=== PATIENT | female | born 1995 | race Hispanic/Latino ===

== ENCOUNTER 2020-03-01 18:45 | Outpatient (CLI) | payer OTHER ==
[~2020-03-01] VITALS: Ht 172.7 cm; Wt 107.8 kg
[2020-03-01 19:00] VITALS: BP 135/81
[2020-03-01 19:04] VITALS: BP 139/83
[2020-03-01] MEDS ORDERED: PRENTAB9 PO (19:06)
[2020-03-01 20:06] VITALS: BP 128/76
[2020-03-01] MEDS ORDERED: FIORICET TAB PO ONE (20:30)
[2020-03-01] MEDS ORDERED: ANUSOL HC CREAM 30GM TOP PRN (20:30)
--- NOTE | 2020-03-01 21:07 | IPNPDOC ---
Obstetrical Progress Note Date of Service Mar 01, 2020 Subjective Pt complains of cramping, and swelling in LE's. c/o temporal GRAHAM throughout . No relief with Tylenol. Pt moved here from [place], and has no current OB provider. She has [employer] insurance. Objective Vital Signs Date Time Temp Pulse Resp B/P (MAP) Pulse Ox O2 Delivery O2 Flow Rate FiO2 03/01/20 20:26 18 Room Air 03/01/20 20:06 85 128/76 (93) 03/01/20 19:00 98.3 Assessment Heart Rate (FHR): 130 Variability: Moderate Accelerations: Positive Decelerations: None Heart Rate Tracing: Category I Tocometer Frequency: irregular Duration: less than 60 seconds Strength: palpated as mild Sterile Vaginal Examination Dilation: 2cm Effacement (%): 50% Station: -2 Cervical Consistency: Firm Cervical Position: Posterior Assessment and Plan Age: 24 : 1 Term: 0 EGA at Admission: 37 (1/7) Weeks & Days 05/29 Status: Reassuring Group B Streptococcus: Unknown Additional Comments 24 yo G1 at 37 1/7 weeks with cramping, GRAHAM Pt given Fioricet Tablet with good effect Hemorrhoid cream Pt will call to arrange care here BRADLEY ROE MD Mar 01, 2020 21:07
== END 2020-03-01 21:10 | disposition home or self-care (01) ==
LOC: M LDO 18:45
PROVIDERS: ATTEND Specialist
DX: O26.893 Other specified pregnancy related conditions, third trimester (principal); Z3A.37 37 weeks gestation of pregnancy
CPT/HCPCS: 59025; G0378; G0463

== ENCOUNTER → 2020-03-01 | Outpatient (CLI) | payer OTHER ==
[~2020-03-01] MED LIST: ACET-683 PO; IBUP80TA PO; PRENTAB9 PO
== END ==
LOC: M LDO 18:38
PROVIDERS: ATTEND Obstetrics & Gynecology
DX: Z79.899 Other long term (current) drug therapy (principal)

== ENCOUNTER → 2020-03-19 | Outpatient (REF) | payer OTHER | LOC: M SFHCWAGY 10:04 | PROVIDERS: ATTEND Obstetrics & Gynecology | DX: Z34.03 Encounter for supervision of normal first pregnancy, third trimester (principal); Z36.89 Encounter for other specified antenatal screening ==

== ENCOUNTER 2020-03-22 14:36 | Inpatient (IN) | payer OTHER ==
[2020-03-22] VITALS (13 sets, daily range): BP systolic 127–159; BP diastolic 72–94
[~2020-03-22] VITALS: Ht 172.7 cm; Wt 109.0 kg
[~2020-03-22 14:36] MED LIST changes: -ACET-683 PO; -IBUP80TA PO
[2020-03-22] MEDS ORDERED: LACTATED RINGER'S 1000 ML IV STA (15:49)
[2020-03-22 15:59] LABS: HEMATOCRIT 31.4 % (36.0-47.0); HEMOGLOBIN 10.1 g/dl (12.0-15.5); MEAN CORPUSCULAR HEMOGLOBIN 27.4 pg (27.0-33.0); MEAN CORPUSCULAR HGB CONC 32.2 g/dl (32.0-36.5); MEAN CORPUSCULAR VOLUME 85.3 fl (80.0-96.0); PLATELET COUNT, AUTOMATED 233 10^3/uL (150-450); RED BLOOD COUNT 3.68 10^6/uL (4.00-5.40); WHITE BLOOD COUNT 11.9 10^3/uL (4.0-10.0)
[2020-03-22] MEDS: miSOPROStol 50 MCG 1/2 TAB (S0191) SL SCH ×2 (16:08→20:22)
--- NOTE | 2020-03-22 16:12 | HPEPDOC ---
Obstetrical History & Physical General Date of Admission Mar 22, 2020 at 14:36 History of Present Illness 24 yo G1 at 40 0/7 weeks gestation by LMP (EDC=03/22/2020) presetns for elective induction of labor. She moved here late in , and has only had one visit. Information Provided By: Patient Age: 24 : 1 Term: 0 Care Care: Other Number of Visits: 1 Dating Final EDC: Mar 22, 2020 Final EDC by: LMP Past Medical History Past Obstetrical History : Past Obstetrical History: Primgravida Past Medical History Surgical History: Denies/None Family History Significant Family History: No pertinent family hx Social History Family situation: Spouse/partner home * Smoker: non-smoker Alcohol: Denies Allergies Coded Allergies: No Known Allergies (Unverified , 03/01/20) Medications Scheduled No.137/Iron/Folic Acd ( Vitamin Tablet) 1 Each Tablet, 1 TAB PO DAILY Physical Examination Physical Examination GENERAL: Alert and oriented times three. BREAST: . ABDOMEN: Gravid and non-tender to touch. FETUS: Is vertex (VTX) by sterile vaginal examination (SVE), fetus is vertex (VTX) by Harjit. HEART RATE: Regular rate and rhythm. LUNGS: Clear to auscultation (CTA). EXTREMITIES: No edema. No clonus. Deep tendon reflexes (DTRs) + . Laboratory Data 24H LABS Laboratory Tests 2 03/22/20 15:17: Nucleated Red Blood Cells % (auto) 0.0 CBC/BMP Laboratory Tests 03/22/20 15:17 Assessment/Plan Assessment Pt is a 24-year-old (G)1 para (P)0 at 40+0 weeks by LMP (EDC=03/22/2020) presents to Labor and Delivery for induction of labor. Plan Admit and orient. Group B Streptococcus (GBS) negative. Labs and intravenous (IV) per unit protocol. Anticipate [normal spontaneous delivery ()]. C-S as appropriate. BRADLEY QUARLES MD Mar 22, 2020 16:12
[2020-03-22] MEDS ORDERED: FENTANYL 2MCG/ML ROPIVACAINE 0.2% IN 0.9% NACL 100ML IVBAG As Ordered ONE (22:17)
[2020-03-22] MEDS ORDERED: LACTATED RINGER'S 1000 ML IV PRN (23:39)
[2020-03-22] MEDS ORDERED: ONDANSETRON 4MG/2ML VIAL IV PRN (23:39)
[2020-03-22] MEDS ORDERED: NALOXONE INJ 0.4MG/1ML VIAL (J2310 PER 1MG) IV PRN (23:39)
[2020-03-22] MEDS ORDERED: EPIDURAL COMMENT XX SCH (23:39)
[2020-03-22] MEDS ORDERED: REFRIGERATOR IV KEYS XX PRN (23:39)
[2020-03-22] MEDS ORDERED: EPIDURAL/PCA KEYS XX PRN (23:39)
[2020-03-22] MEDS ORDERED: diphenhydrAMINE 50MG/ML VIAL (J1200) IV PRN (23:39)
[2020-03-22] MEDS ORDERED: ePHEDrine SULFATE 25 MG/5 ML(5MG/ML) SYRINGE IV PRN (23:39)
[2020-03-22] MEDS ORDERED: FENTANYL/ROPIVACAINE/NACL BAG 100 ML EPIDURAL SCH (23:39)
[2020-03-23] VITALS (14 sets, daily range): BP systolic 121–193; BP diastolic 63–93
[2020-03-23] MEDS ORDERED: OXYTOCIN 30 UNITS IN 0.9% NaCl 500ML IV BAG (J2590) As Ordered ONE (01:56)
[2020-03-23] MEDS ORDERED: LIDOCAINE 1% MDV 20ML VIAL INFIL ONE (05:00)
[2020-03-23] MEDS ORDERED: METHYLERGONOVINE MALEATE 0.2 MG TAB PO PRN (05:00)
[2020-03-23] MEDS ORDERED: MEASLES,MUMPS,RUBELLA VACCINE INJ (MMR-II) (90707) SC SCH (05:00)
[2020-03-23] MEDS ORDERED: DIBUCAINE 1% OINTMENT 30GM TOP PRN (05:00)
[2020-03-23] MEDS ORDERED: IBUPROFEN 600MG TAB PO PRN (05:00)
[2020-03-23] MEDS ORDERED: DOCUSATE SODIUM 100 MG CAP PO PRN (05:00)
[2020-03-23] MEDS ORDERED: RHOGAM 300 MCG (1500 IU) INJ (J2790) IM SCH (05:00)
[2020-03-23] MEDS ORDERED: ACETAMINOPHEN TAB 650MG DOSE (2X325MG) PO PRN (05:00)
[2020-03-23] MEDS ORDERED: ONDANSETRON 4MG/2ML VIAL IV PRN (05:00)
[2020-03-23] MEDS ORDERED: OXYTOCIN DRIP 30 UNITS in IV 1 EA IV ONE (05:00)
--- NOTE | 2020-03-23 05:06 | DNPDOC ---
[facility] Delivery Note Delivery Note DATE OF DELIVERY: March 23, 2020 PREDELIVERY DIAGNOSIS: 40-0/7 weeks' gestation and labor. POST DELIVERY DIAGNOSIS: Delivered. PROCEDURE: Spontaneous vaginal delivery. [employer]SEM[employer]: Dr. Bradley Quarles MD ANESTHESIA: epidural. ESTIMATED BLOOD LOSS: 300 mL. FINDINGS: 7 pound 10 ounce male infant, Score 8/9, true knot x 1. DELIVERY SUMMARY: Patient is a 24-year-old 1 now para 1 who was admitted to labor and delivery for induction. She received two doses of Misoprostol. She had a 1 hour second stage of labor that resulted in a 7 lb. 10 oz male infant. The shoulders delivered with ease. The infant was handed to the mother and cried quickly. The cord was doubly clamped and cut. The placenta delivered spontaneously and appeared intact. A second degree perineal laceration was repaired with 2-O Chromic in the usual fashion under local anesthesia. The patient received IV Pitocin immediately after delivery of the placenta. Sponge and needle counts were correct. BRADLEY QUARLES MD Mar 23, 2020 05:06
[2020-03-23] MEDS: ACETAMINOPHEN 500 MG TAB PO PRN ×3 (08:00→23:04)
[2020-03-23] MEDS: PRENATAL VITAMINS CHEWABLE TABLET PO SCH (08:48)
[2020-03-23] MEDS: IBUPROFEN 800 MG TAB PO PRN ×2 (08:49→18:37)
[2020-03-24 05:31] VITALS: BP 135/83
[2020-03-24] MEDS ORDERED: ACET-683 PO (07:56)
[2020-03-24] MEDS ORDERED: IBUP80TA PO (07:56)
[2020-03-24] MEDS: IBUPROFEN 800 MG TAB PO PRN (08:03)
[2020-03-24] MEDS: PRENATAL VITAMINS CHEWABLE TABLET PO SCH (08:03)
[2020-03-24] MEDS ORDERED: INFLUENZA QUADRIVALENT PF VACCINE 0.5ML SYRINGE IM ONE (09:00)
[2020-03-24] MEDS ORDERED: BOOSTRIX/ADACEL VACCINE (DIPHTH/PERTUSS/ACELL/TETANUS) 0.5ML SYR IM ONE (09:00)
[2020-03-24] MEDS: ACETAMINOPHEN 500 MG TAB PO PRN (14:56)
== END 2020-03-24 17:00 | disposition home or self-care (01) | DRG 807 ==
LOC: M LDI 14:36 → M OBS 03-23 08:35
PROVIDERS: ADMIT Specialist; ATTEND Specialist
PROC: 3E0P7GC Introduction of Other Therapeutic Substance into Female Reproductive, Via Natural or Artificial Opening (ICD-10-PCS; 2020-03-22)
PROC: 10E0XZZ Delivery of Products of Conception, External Approach (ICD-10-PCS; principal; 2020-03-23)
PROC: 0KQM0ZZ Repair Perineum Muscle, Open Approach (ICD-10-PCS; 2020-03-23)
DX: O70.1 Second degree perineal laceration during delivery (principal); Z37.0 Single live birth; Z3A.40 40 weeks gestation of pregnancy

== ENCOUNTER 2020-08-20 11:19 | Emergency (ER) | payer OTHER ==
[~2020-08-20] VITALS: Ht 172.7 cm; Wt 101.2 kg
[~2020-08-20 11:19] MED LIST changes: +ACET-683 PO; +IBUP80TA PO
[2020-08-20] MEDS ORDERED: APPL300T4 PO (11:30)
[2020-08-20] MEDS ORDERED: MULT-90 PO (11:30)
[2020-08-20 12:13] LABS: EOS # 0.1 10^3/uL (0.0-0.5); EOS % 1.7 % (0.0-3.0); HEMATOCRIT 40.1 % (36.0-47.0); HEMOGLOBIN 12.6 g/dl (12.0-15.5); LYMPH % 21.5 % (24.0-44.0); MEAN CORPUSCULAR HEMOGLOBIN 27.4 pg (27.0-33.0); MEAN CORPUSCULAR HGB CONC 31.4 g/dl (32.0-36.5); MEAN CORPUSCULAR VOLUME 87.2 fl (80.0-96.0); MONO # 0.4 10^3/uL (0.0-0.8); MONO % 9.5 % (2.0-8.0); NEUTROPHILS # 3.1 10^3/uL (1.5-8.5); NEUTROPHILS % 67.1 % (36.0-66.0); PLATELET COUNT, AUTOMATED 238 10^3/uL (150-450); WHITE BLOOD COUNT 4.6 10^3/uL (4.0-10.0)
[2020-08-20 13:07] LABS: ALBUMIN 3.2 GM/DL (3.2-5.2); BILIRUBIN,DIRECT 0.1 MG/DL (0.0-0.2); BILIRUBIN,TOTAL 0.4 MG/DL (0.2-1.0); TOTAL PROTEIN 7.3 GM/DL (6.4-8.2)
--- NOTE | 2020-08-20 13:34 | REP ---
INDICATION: abd pain COMPARISON: None. TECHNIQUE: CT Scan of the abdomen and pelvis was performed without intravenous contrast. Sagittal and coronal reconstruction images performed. FINDINGS: Lung bases: Unremarkable. Liver: Grossly unremarkable. Gallbladder: Unremarkable. Spleen: Grossly unremarkable.. Adrenals: Normal. Pancreas: Grossly unremarkable.. Kidneys: No hydronephrosis or nephrolithiasis. Ureters demonstrate no dilatation or calculus. Small and large bowel: Grossly unremarkable. Free fluid: None. Abdominal aorta: No aneurysm. Adenopathy: None. Appendix: Not inflamed. Osseous structures: Unremarkable. Pelvis: No mass. No bladder calculus seen. IMPRESSION: Negative non-contrast CT abdomen and pelvis. <Electronically signed by Lane Barba > 08/20/20 [id number]
[2020-08-20] MEDS ORDERED: PROT1TAB2 PO (14:36)
[2020-08-20] MEDS ORDERED: MACR100C43 PO (14:36)
[2020-08-20 14:44] VITALS: BP 116/69
== END 2020-08-20 14:47 | disposition home or self-care (01) ==
LOC: M ED 11:19
DX: N39.0 Urinary tract infection, site not specified (principal); K29.70 Gastritis, unspecified, without bleeding; Z79.899 Other long term (current) drug therapy

== ENCOUNTER → 2020-12-03 | Outpatient (REF) | payer OTHER ==
[~2020-12-03] MED LIST changes: +APPL300T4 PO; +MACR100C43 PO; +MULT-90 PO; +PROT1TAB2 PO
== END ==
LOC: M SFHCWAGY 13:15
PROVIDERS: ATTEND Obstetrics & Gynecology
DX: Z12.4 Encounter for screening for malignant neoplasm of cervix (principal); Z01.419 Encounter for gynecological examination (general) (routine) without abnormal findings

== ENCOUNTER 2021-10-04 00:45 | Outpatient (CLI) | payer OTHER ==
[~2021-10-04] VITALS: Ht 172.7 cm; Wt 112.0 kg
[2021-10-04 01:22] VITALS: BP 152/87
[2021-10-04] MEDS ORDERED: PRENTAB9 PO (01:26)
[2021-10-04] MEDS ORDERED: IRON27TA2 PO (01:26)
[2021-10-04] MEDS ORDERED: TUMS500C PO (01:26)
[2021-10-04 01:28] VITALS: BP 136/74
[2021-10-04] MEDS ORDERED: HOME MED LIST COMPLETE! XX SCH (01:30)
[2021-10-04 02:19] VITALS: BP 135/88
== END 2021-10-04 05:21 | disposition home or self-care (01) ==
LOC: M LDO 00:45
PROVIDERS: ATTEND Obstetrics & Gynecology
DX: O47.03 False labor before 37 completed weeks of gestation, third trimester (principal); Z3A.38 38 weeks gestation of pregnancy
CPT/HCPCS: 59025; 76815; G0463

== ENCOUNTER 2021-10-12 21:47 | Inpatient (IN) | payer OTHER ==
[~2021-10-12] VITALS: Ht 172.7 cm; Wt 118.0 kg
[~2021-10-12 21:47] MED LIST changes: +IRON27TA2 PO; +TUMS500C PO
[2021-10-12 22:04] VITALS: BP 143/93
[2021-10-12 23:17] VITALS: BP 143/80
[2021-10-13] VITALS (15 sets, daily range): BP systolic 116–151; BP diastolic 59–93
[2021-10-13] MEDS ORDERED: TRANEXAMIC ACID INJection 1,000 MG in NS 100 ML IV PRN (00:20)
[2021-10-13] MEDS ORDERED: OXYTOCIN DRIP 30 UNITS in IV 1 EA IV PRN (00:20)
[2021-10-13] MEDS ORDERED: LIDOCAINE 1% MDV 20ML VIAL INFIL PRN (00:20)
[2021-10-13] MEDS ORDERED: PROMETHAZINE 25MG/ML 1ML VIAL IV ONE (00:45)
[2021-10-13] MEDS ORDERED: BUTORPHANOL 2 MG/ML INJ (J0595) IV ONE (00:45)
[2021-10-13 00:47] LABS: HEMATOCRIT 33.5 % (36.0-47.0); HEMOGLOBIN 11.2 g/dl (12.0-15.5); MEAN CORPUSCULAR HEMOGLOBIN 28.5 pg (27.0-33.0); MEAN CORPUSCULAR HGB CONC 33.4 g/dl (32.0-36.5); MEAN CORPUSCULAR VOLUME 85.2 fl (80.0-96.0); PLATELET COUNT, AUTOMATED 193 10^3/uL (150-450); RED BLOOD COUNT 3.93 10^6/uL (4.00-5.40); WHITE BLOOD COUNT 10.7 10^3/uL (4.0-10.0)
[2021-10-13] MEDS: LR 1,000 ML IV SCH ×3 (00:57→16:24)
[2021-10-13] MEDS ORDERED: OXYTOCIN DRIP 30 UNITS in IV 1 EA IV SCH ×27 (08:15→16:00)
[2021-10-13] MEDS ORDERED: ONDANSETRON 4MG/2ML VIAL IV PRN (13:20)
[2021-10-13] MEDS ORDERED: FENTANYL/ROPIVACAINE/NACL BAG 100 ML EPIDURAL SCH (13:20)
[2021-10-13] MEDS ORDERED: diphenhydrAMINE 50MG/ML VIAL (J1200) IV PRN (13:20)
[2021-10-13] MEDS ORDERED: LR 500 ML IV PRN (13:20)
[2021-10-13] MEDS ORDERED: NALOXONE INJ 0.4MG/1ML VIAL (J2310 PER 1MG) IV PRN (13:20)
[2021-10-13] MEDS ORDERED: ePHEDrine INJ 50 MG/ML VIAL IVP PRN (13:20)
[2021-10-13] MEDS ORDERED: EPIDURAL/PCA KEYS XX PRN (13:20)
[2021-10-13] MEDS ORDERED: ACETAMINOPHEN 500 MG TAB PO PRN ×12 (16:00)
[2021-10-13] MEDS ORDERED: ACETAMINOPHEN TAB 650MG DOSE (2X325MG) PO PRN ×13 (16:00)
[2021-10-13] MEDS ORDERED: IBUPROFEN 800 MG TAB PO PRN ×12 (16:00)
[2021-10-13] MEDS ORDERED: METHYLERGONOVINE MALEATE 0.2 MG TAB PO PRN ×13 (16:00)
[2021-10-13] MEDS ORDERED: MOM 30ML SUSPENSION UDC PO PRN ×13 (16:00)
[2021-10-13] MEDS ORDERED: MEASLES,MUMPS,RUBELLA VACCINE INJ (MMR-II) (90707) SC SCH ×13 (16:00)
[2021-10-13] MEDS ORDERED: IBUPROFEN 600MG TAB PO PRN ×13 (16:00)
[2021-10-13] MEDS ORDERED: DIBUCAINE 1% OINTMENT 30GM TOP PRN ×13 (16:00)
[2021-10-13] MEDS: IBUPROFEN 800 MG TAB PO PRN (19:05)
[2021-10-13] MEDS: DOCUSATE SODIUM 100MG CAPSULE PO SCH (19:05)
[2021-10-13] MEDS ORDERED: DOCUSATE SODIUM 100MG CAPSULE PO SCH ×12 (21:00)
[2021-10-13] MEDS: ACETAMINOPHEN 500 MG TAB PO PRN (23:48)
[2021-10-14] MEDS: IBUPROFEN 800 MG TAB PO PRN ×2 (04:57→16:02)
[2021-10-14 06:00] VITALS: BP 139/89
[2021-10-14] MEDS: PRENATAL VITAMINS CHEWABLE TABLET PO SCH (07:40)
[2021-10-14] MEDS: DOCUSATE SODIUM 100MG CAPSULE PO SCH ×2 (07:40→21:30)
[2021-10-14] MEDS: ACETAMINOPHEN 500 MG TAB PO PRN ×2 (07:46→17:49)
[2021-10-14] MEDS ORDERED: PRENATAL VITAMINS CHEWABLE TABLET PO SCH ×12 (09:00)
[2021-10-14 17:51] VITALS: BP 137/86
[2021-10-14 22:20] VITALS: BP 148/96
[2021-10-15] MEDS: IBUPROFEN 800 MG TAB PO PRN (01:01)
[2021-10-15 01:57] VITALS: BP 130/86
[2021-10-15 06:12] VITALS: BP 134/78
[2021-10-15] MEDS ORDERED: COLA100C5 PO (07:00)
[2021-10-15] MEDS ORDERED: PRENCHW PO (07:00)
[2021-10-15] MEDS ORDERED: IBUP-1022 PO (07:00)
[2021-10-15] MEDS: PRENATAL VITAMINS CHEWABLE TABLET PO SCH (07:54)
[2021-10-15] MEDS: DOCUSATE SODIUM 100MG CAPSULE PO SCH (07:54)
== END 2021-10-15 11:00 | disposition home or self-care (01) | DRG 807 ==
LOC: M LDO 21:47 → M LDI 10-13 00:20 → M OBS 10-13 17:28
PROVIDERS: ADMIT Obstetrics & Gynecology; ATTEND Advanced Practice Midwife
PROC: 10E0XZZ Delivery of Products of Conception, External Approach (ICD-10-PCS; principal; 2021-10-13)
PROC: 0HQ9XZZ Repair Perineum Skin, External Approach (ICD-10-PCS; 2021-10-13)
DX: O99.02 Anemia complicating childbirth (principal); Z37.0 Single live birth; O62.4 Hypertonic, incoordinate, and prolonged uterine contractions; Z3A.39 39 weeks gestation of pregnancy; O76 Abnormality in fetal heart rate and rhythm complicating labor and delivery; O99.214 Obesity complicating childbirth; O69.81X0 Labor and delivery complicated by cord around neck, without compression, not applicable or unspecified; O70.1 Second degree perineal laceration during delivery; D64.9 Anemia, unspecified; E66.9 Obesity, unspecified

== ENCOUNTER 2023-10-05 08:31 | Inpatient (IN) | payer OTHER ==
[~2023-10-05] VITALS: Ht 172.7 cm; Wt 88.2 kg
[~2023-10-05 08:31] MED LIST changes: +CEFD1CAP9 PO; +COLA100C5 PO; +IBUP-1022 PO; +ONDA-284 PO; +PRENCHW PO
[2023-10-05] MEDS ORDERED: MED REC IN PROGRESS XX SCH (10:30)
[2023-10-05] MEDS ORDERED: HOME MED LIST COMPLETE! XX SCH (11:15)
[2023-10-05 11:43] LABS: HEMATOCRIT 42.7 % (36.0-47.0); HEMOGLOBIN 13.7 g/dl (12.0-15.5); MEAN CORPUSCULAR HEMOGLOBIN 28.8 pg (27.0-33.0); MEAN CORPUSCULAR HGB CONC 32.1 g/dl (32.0-36.5); MEAN CORPUSCULAR VOLUME 89.9 fl (80.0-96.0); PLATELET COUNT, AUTOMATED 245 10^3/uL (150-450); RED BLOOD COUNT 4.75 10^6/uL (4.00-5.40); WHITE BLOOD COUNT 8.4 10^3/uL (4.0-10.0)
[2023-10-05 12:02] LABS: AMPHETAMINES LEVEL URINE NEGATIVE (NEGATIVE); BARBITURATES URINE NEGATIVE (NEGATIVE); BENZODIAZEPINES URINE NEGATIVE (NEGATIVE); CANNABINOIDS URINE NEGATIVE (NEGATIVE); COCAINE METABOLITE URINE NEGATIVE (NEGATIVE); METHADONE URINE NEGATIVE (NEGATIVE); OPIATES URINE NEGATIVE (NEGATIVE); PHENCYCLIDINE URINE NEGATIVE (NEGATIVE)
[2023-10-05 12:06] LABS: ETHYL ALCOHOL (ETHANOL) < 0.003 % (0.000-0.010)
[2023-10-05 12:08] LABS: ALBUMIN 4.2 G/DL (3.2-5.2); ALKALINE PHOSPHATASE 116 U/L (46-116); ALT/SGPT 14 U/L (7.0-40); AST/SGOT 16 U/L (<34); BILIRUBIN,DIRECT 0.3 MG/DL (<0.4); BILIRUBIN,TOTAL 0.8 MG/DL (0.3-1.2); BLOOD UREA NITROGEN 13 MG/DL (9-23); CALCIUM LEVEL 9.6 MG/DL (8.5-10.1); CARBON DIOXIDE LEVEL 25 MMOL/L (20-31); CHLORIDE LEVEL 103 MMOL/L (98-107); CREATININE FOR GFR 0.87 MG/DL (0.55-1.30); GLOMERULAR FILTRATION RATE > 60.0 (>60); GLUCOSE, FASTING 98 MG/DL (60-100); HCG, SERUM QUALITATIVE NEGATIVE (NEGATIVE); POTASSIUM SERUM 3.9 MMOL/L (3.5-5.1); SALICYLATE LEVEL < 3.0 MG/DL (<30); SODIUM LEVEL 138 MMOL/L (136-145); THYROID STIMULATING HORMONE 0.908 uIU/ML (0.55-4.78); TOTAL PROTEIN 8.1 G/DL (5.7-8.2)
[2023-10-05] MEDS ORDERED: MAALOX 30 ML SUSP *UDC PO PRN (16:20)
[2023-10-05 18:13] VITALS: BP 132/88; TEMP 98.2; O2SAT 100
[2023-10-06] MEDS: IBUPROFEN 400MG TAB PO PRN (03:47)
[2023-10-06] MEDS: NORCO, ANEXSIA 5/325MG TABLET (HYDROcodone/ACETAMINOPHEN) PO ONE (05:51)
[2023-10-06 06:10] VITALS: BP 111/63; TEMP 98.2; O2SAT 100
[2023-10-06] MEDS: VENLAFAXINE **XR** 37.5 MG CAPSULE PO SCH (09:00)
[2023-10-06 12:14] LABS: C REACTIVE PROTEIN QUANTITATIV < 0.40 MG/DL (<1.0)
[2023-10-06 13:01] LABS: HEPATITIS B SURFACE ANTIBODY NEGATIVE (POSITIVE)
[2023-10-06 13:06] LABS: PROCALCITONIN <0.04 ng/ml
[2023-10-06 13:12] LABS: HEPATITIS B SURFACE ANTIGEN NEGATIVE (NEGATIVE)
[2023-10-06 13:24] LABS: HIV 1&2 SCREEN NEGATIVE (NEGATIVE)
[2023-10-06 13:33] LABS: HEPATITIS B CORE ANTIBODY IGM NEGATIVE (NEGATIVE); HEPATITIS C VIRUS ABY INDEX < 0.02 INDEX (<0.8)
[2023-10-06 14:39] LABS: Trichomonas vaginalis (AMP) NOT DETECTED (NEGATIVE)
[2023-10-06 15:03] LABS: GC DNA AMPLIFICATION NEGATIVE (NEGATIVE)
[2023-10-06] MEDS: ACETAMINOPHEN TAB 650MG DOSE (2X325MG) PO PRN (16:43)
[2023-10-06] MEDS: OLANZapine 5 MG TAB PO SCH (20:19)
[2023-10-06] MEDS: traZODone 50 MG TAB PO PRN (20:20)
[2023-10-07] MEDS ORDERED: DIVALPROEX 250MG *ER* TAB PO SCH (09:00)
[2023-10-07] MEDS: OLANZapine 10 MG TAB PO ONE (12:46)
[2023-10-07] MEDS: HALOPERIDOL LACTATE 5MG/ML VIAL IM STA (17:45)
[2023-10-07] MEDS: LORazepam 2 MG/ML 1ML VIAL IM STA (17:45)
[2023-10-08 06:22] VITALS: BP 132/90; TEMP 97.5; O2SAT 96
[2023-10-08] MEDS: DIVALPROEX 250MG *ER* TAB PO SCH (09:00)
[2023-10-08 16:24] VITALS: BP 140/79; TEMP 97.8; O2SAT 96
[2023-10-08] MEDS: OLANZapine ORAL DISINTEGRATING TAB 5MG PO PRN (19:33)
[2023-10-08] MEDS: diphenhydrAMINE 25MG CAP PO PRN (19:34)
[2023-10-08] MEDS: LORazepam 2 MG TAB PO PRN (19:34)
[2023-10-09 07:00] VITALS: BP 132/86; TEMP 97.2; O2SAT 96
[2023-10-09 15:51] VITALS: BP 132/74; TEMP 98.2; O2SAT 100
[2023-10-10 06:42] VITALS: BP 138/65; TEMP 97.6; O2SAT 100
[2023-10-10] MEDS: OLANZapine 10 MG TAB PO SCH (09:50)
[2023-10-10] MEDS ORDERED: QUEtiapine FUMARATE 50MG TAB PO PRN (10:15)
[2023-10-10] MEDS: LITHIUM CARBONATE 300 MG CAP PO SCH (21:00)
[2023-10-10 21:08] LABS: HBV HBV DNA not detected IU/mL (.); HEPATITIS C QUANTITATION HCV Not Detected IU/mL (.)
[2023-10-11] MEDS ORDERED: DIVALPROEX 250MG *ER* TAB PO SCH (09:00)
[2023-10-11] MEDS: DIVALPROEX 500MG *ER* TAB PO SCH (09:51)
[2023-10-11 18:31] VITALS: BP 120/59; TEMP 98.7
[2023-10-11] MEDS: OLANZapine 10 MG TAB PO SCH (21:00)
[2023-10-11] MEDS: QUEtiapine FUMARATE 50MG TAB PO SCH (21:00)
[2023-10-12 07:06] LABS: CHOLESTEROL RISK RATIO 2.03 (<5); HDL CHOLESTEROL 59.1 MG/DL (>40); LDL CHOLESTEROL 50.1 MG/DL (<100); NON-HDL-C 60.9 MG/DL
[2023-10-12] MEDS: PILL CUTTER 1 EACH XX PRN (20:52)
[2023-10-12] MEDS: QUEtiapine FUMARATE 50MG TAB PO SCH (20:57)
[2023-10-13 05:59] VITALS: BP 116/66; TEMP 97.8; O2SAT 100
[2023-10-13 18:51] VITALS: BP 134/74; TEMP 98.4; O2SAT 99
[2023-10-13] MEDS: DIVALPROEX 250MG *ER* TAB PO SCH (21:47)
[2023-10-14 16:34] VITALS: BP 121/65; TEMP 97.5; O2SAT 98
[2023-10-15 15:53] VITALS: BP 120/83; TEMP 97.2; TEMP 98.3; O2SAT 94; O2SAT 96
[2023-10-15 16:11] VITALS: BP 120/83; TEMP 97.2; O2SAT 94
[2023-10-15] MEDS: traZODone 50 MG TAB PO PRN (21:40)
[2023-10-16] MEDS: OLANZapine ORAL DISINTEGRATING TAB 5MG PO PRN (05:57)
[2023-10-16 14:00] VITALS: BP 140/82; TEMP 97.6; O2SAT 97
[2023-10-16 15:19] LABS: HEMOGLOBIN 12.8 g/dl (12.0-15.5); MEAN CORPUSCULAR HEMOGLOBIN 29.2 pg (27.0-33.0); MEAN CORPUSCULAR HGB CONC 32.8 g/dl (32.0-36.5); MEAN CORPUSCULAR VOLUME 88.8 fl (80.0-96.0); PLATELET COUNT, AUTOMATED 208 10^3/uL (150-450); RED BLOOD COUNT 4.39 10^6/uL (4.00-5.40); WHITE BLOOD COUNT 6.6 10^3/uL (4.0-10.0)
[2023-10-16 15:51] LABS: ALBUMIN 3.3 G/DL (3.2-5.2); ALKALINE PHOSPHATASE 93 U/L (46-116); ALT/SGPT 12 U/L (7.0-40); AST/SGOT < 8 U/L (<34); BILIRUBIN,TOTAL 0.4 MG/DL (0.3-1.2); BLOOD UREA NITROGEN 13 MG/DL (9-23); CALCIUM LEVEL 8.9 MG/DL (8.5-10.1); CARBON DIOXIDE LEVEL 24 MMOL/L (20-31); CHLORIDE LEVEL 112 MMOL/L (98-107); CREATININE FOR GFR 0.69 MG/DL (0.55-1.30); GLOMERULAR FILTRATION RATE > 60.0 (>60); GLUCOSE, FASTING 124 MG/DL (60-100); SODIUM LEVEL 143 MMOL/L (136-145); TOTAL PROTEIN 6.8 G/DL (5.7-8.2)
[2023-10-17 06:57] VITALS: BP 120/69; TEMP 98.4; O2SAT 100
[2023-10-17] MEDS: HALOPERIDOL DECANOATE 100 MG/ML 1ML VIAL IM ONE (09:00)
[2023-10-17] MEDS ORDERED: BENZTROPINE 1 MG TAB PO PRN (09:05)
[2023-10-17 17:53] VITALS: BP 117/68; TEMP 97.4
[2023-10-17] MEDS: QUEtiapine FUMARATE 100 MG TAB PO SCH (21:23)
[2023-10-17] MEDS: DIVALPROEX 500MG *ER* TAB PO SCH (21:23)
[2023-10-17] MEDS: traZODone 100 MG TAB PO PRN (21:23)
[2023-10-17 22:27] VITALS: BP 126/65; TEMP 98.3; O2SAT 100
[2023-10-18] MEDS: HALOPERIDOL DECANOATE 100 MG/ML 1ML VIAL IM ONE (09:00)
[2023-10-18] MEDS: BENZTROPINE 2 MG TAB PO PRN (15:34)
[2023-10-18 16:24] VITALS: BP 112/67; TEMP 98.7; O2SAT 100
[2023-10-19 06:24] VITALS: BP 119/57; TEMP 98.4; O2SAT 100
[2023-10-19] MEDS: BENZTROPINE 1 MG TAB PO SCH (09:00)
[2023-10-19] MEDS ORDERED: HALOPERIDOL DECANOATE 100 MG/ML 1ML VIAL IM ONE (11:20)
[2023-10-19] MEDS: HALOPERIDOL DECANOATE 100 MG/ML 1ML VIAL IM ONE (14:49)
[2023-10-19] MEDS: LORazepam 2 MG TAB PO PRN (14:49)
[2023-10-20 17:13] VITALS: BP 127/69; TEMP 97; O2SAT 100
[2023-10-21 06:36] VITALS: BP 123/68; TEMP 98; O2SAT 100
[2023-10-21] MEDS: DIVALPROEX 500MG *ER* TAB PO SCH (09:00)
[2023-10-21 16:00] VITALS: BP 120/76; TEMP 98; O2SAT 99
[2023-10-22 06:02] VITALS: BP 111/59; TEMP 98.8; O2SAT 100
[2023-10-22 16:15] VITALS: BP 108/59; TEMP 97.5; O2SAT 100
[2023-10-23 18:00] VITALS: BP 128/69; TEMP 98.2; O2SAT 100
[2023-10-24 06:09] VITALS: BP 123/74; TEMP 98; O2SAT 100
[2023-10-24] MEDS: QUEtiapine FUMARATE 100 MG TAB PO SCH (21:44)
[2023-10-25 06:57] VITALS: BP 123/67; TEMP 97; O2SAT 100
[2023-10-25] MEDS: HALOPERIDOL DECANOATE 100 MG/ML 1ML VIAL IM ONE (07:00)
[2023-10-25 16:51] VITALS: BP 131/66; TEMP 97.7; O2SAT 100
[2023-10-26 06:27] VITALS: BP 114/59; TEMP 97; O2SAT 100
[2023-10-26] MEDS: HALOPERIDOL DECANOATE 100 MG/ML 1ML VIAL IM ONE (12:35)
[2023-10-27 06:13] VITALS: BP 123/74; TEMP 97.9; O2SAT 100
[2023-10-27 18:47] VITALS: BP 118/67; TEMP 98.2; O2SAT 100
[2023-10-28 06:35] VITALS: BP 129/65; TEMP 97.7; O2SAT 99
[2023-10-28] MEDS: DIVALPROEX 250MG *ER* TAB PO SCH (09:03)
[2023-10-29 06:34] VITALS: BP 122/69; TEMP 97.4; O2SAT 99
[2023-10-29 18:00] VITALS: BP 112/55; TEMP 96.9; O2SAT 94
[2023-10-30 06:36] VITALS: BP 101/73; TEMP 96.8; O2SAT 100
[2023-10-31] MEDS: UNRESOLVED CLARIFICATION ENTRY XX SCH (00:01)
[2023-10-31 06:10] VITALS: BP 115/69; TEMP 98.4; O2SAT 99
[2023-10-31 18:53] VITALS: BP 119/60; TEMP 97.3
[2023-11-01 06:09] VITALS: BP 95/58; TEMP 97.3; O2SAT 100
[2023-11-01] MEDS: DIVALPROEX 500MG *ER* TAB PO SCH (10:38)
[2023-11-01 16:29] VITALS: BP 148/82; TEMP 97.3
[2023-11-02 06:30] VITALS: BP 124/76; TEMP 97.1; O2SAT 96
[2023-11-02 18:29] VITALS: BP 128/68; TEMP 98.6
[2023-11-04 07:06] VITALS: BP 92/55; TEMP 96.9; O2SAT 99
[2023-11-04 15:38] VITALS: BP 116/58; TEMP 98; O2SAT 100
[2023-11-05 06:41] VITALS: BP 103/52; TEMP 98; O2SAT 98
[2023-11-05 16:14] VITALS: BP 118/76; TEMP 97.5; O2SAT 100
[2023-11-05] MEDS: MOM 30ML SUSPENSION UDC PO PRN (22:07)
[2023-11-06 16:27] VITALS: BP 118/60; TEMP 98; O2SAT 100
[2023-11-07 06:38] VITALS: BP 128/65; TEMP 97.6; O2SAT 100
[2023-11-07 18:10] VITALS: BP 104/56; TEMP 98.7
== END 2023-11-08 09:30 | DRG 885 ==
LOC: M ED 08:31 → M ED INP 16:18 → M PSY 18:03
PROVIDERS: ADMIT Student in an Organized Health Care Education/Training Program; ATTEND Student in an Organized Health Care Education/Training Program
DX: F25.0 Schizoaffective disorder, bipolar type (principal); M25.512 Pain in left shoulder; F43.10 Post-traumatic stress disorder, unspecified; R05.9 Cough, unspecified; G47.00 Insomnia, unspecified; F41.0 Panic disorder [episodic paroxysmal anxiety]; Z79.899 Other long term (current) drug therapy; Z11.52 Encounter for screening for COVID-19; Z91.52 Personal history of nonsuicidal self-harm; Z91.51 Personal history of suicidal behavior; Z62.810 Personal history of physical and sexual abuse in childhood